=== PATIENT | male | born 2000 | race Caucasian/White ===

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

== ENCOUNTER 2022-08-22 20:20 | Emergency (ER) | payer SELFPAY ==
[~2022-08-22] VITALS: Ht 175.3 cm; Wt 104.3 kg
[2022-08-22 20:40] VITALS: BP 136/73
--- NOTE | 2022-08-22 20:43 | NUR ---
TO LOBBY A/W BED AMBULATORY
[2022-08-22 21:47] LABS: BASOPHILS # (AUTO) 0.1 K/uL (0.00-0.22); BASOPHILS % (AUTO) 0.5 % (0.0-2.0); EOSINOPHILS # (AUTO) 0.4 K/uL (0-0.4); EOSINOPHILS % (AUTO) 3.9 % (0.0-4.0); HEMATOCRIT 43.5 % (36-52); HEMOGLOBIN 15.1 g/dL (12.0-18.0); LYMPHOCYTES # (AUTO) 4.1 K/uL (2.0-11.5); LYMPHOCYTES % (AUTO) 37.2 % (20.5-51.1); MEAN CORPUSCULAR HEMOGLOBIN 31 pg (27-31); MEAN CORPUSCULAR HGB CONC 35 g/dL (33-37); MEAN CORPUSCULAR VOLUME 89.1 fL (80-94); MONOCYTES # (AUTO) 0.8 K/uL (0.8-1.0); MONOCYTES % (AUTO) 7.4 % (1.7-9.3); NEUTROPHILS # (AUTO) 5.6 K/uL (1.8-7.7); PLATELET COUNT (AUTO) 238 K/uL (140-450); RED BLOOD CELL COUNT(AUTO) 4.89 MIL/uL (4.20-6.10); RED CELL DISTRIBUTION WIDTH 13.3 % (11.6-13.7)
[2022-08-22 22:04] LABS: ANION GAP 9.4 (8-16); CARBON DIOXIDE 31.5 mmol/L (21-32); CREATININE 1.1 mg/dL (0.6-1.3); POTASSIUM 3.9 mmol/L (3.5-5.1)
--- NOTE | 2022-08-22 22:53 | NUR ---
Dr. Joy examining patient.
[2022-08-22] MEDS ORDERED: PRED20TA5 PO (22:57)
[2022-08-22] MEDS ORDERED: DEXT15DR6 OP (22:57)
--- NOTE | 2022-08-22 23:00 | NUR ---
PT SEEN AND EXAMINED BY DR. LOBO. NO NURSING CARE PROVIDED. ALL D/C INSTRUCTIONS EXPLAINED BY DR. LOBO. RX OF [id number]/HYPROMELLOSE AND PREDNISONE GIVEN
== END 2022-08-22 23:00 | disposition home or self-care (01) ==
LOC: MED 20:20
DX: G51.0 Bell's palsy (principal)
CPT/HCPCS: 36415; 80048; 85025; 99283